=== PATIENT | female | born 1980 | race Caucasian/White ===

== ENCOUNTER 2016-05-23 18:20 | Emergency (ER) | payer SELFPAY ==
[2016-05-23] MEDS ORDERED: HYDROcodone/Acetaminophen 10/325 mg Tablet ONE (19:00)
[2016-05-23] MEDS ORDERED: Ciprofloxacin 500 MG TAB ONE (19:01)
[2016-05-23] MEDS ORDERED: Naproxen 500 MG TAB ONE (19:01)
--- NOTE | 2016-05-23 19:16 | ERRECORD ---
[facility] EMERGENCY RECORD HPI TOOTHACHE (19:04 LLDO) CHIEF COMPLAINT: Patient presents for evaluation of toothache, Patient presents for evaluation of jaw swelling, Patient presents for evaluation of see triage note. 5 days. worsening. HISTORIAN: History provided by patient, History provided by patient's spouse. LOCATION: Symptoms are generalized. TEETH: lower left 2nd molar (#18), lower left 3rd molar (#17), Broken Caries noted in Loose Pain to. QUALITY: Pain is dull in nature, described as aching. SEVERITY: Maximum severity of symptoms severe, Currently symptoms are severe. TIME COURSE: Sudden onset of symptoms, Symptoms are worsening, are constant. ASSOCIATED WITH: Associated with facial pain, Associated with facial swelling. EXACERBATED BY: Patient's condition exacerbated by chewing, Patient's condition exacerbated by cold fluids, Patient's condition exacerbated by hot fluids, Patient's condition exacerbated by movement. RELIEVED BY: Patient's condition relieved by nothing. ROS CONSTITUTIONAL: Historian reports fatigue, reports malaise. (19:06 LLDO) EYES: Negative eye review of systems, Historian denies eye pain, denies eye redness, denies eye discharge. (19:09 LLDO) ENT: SEVERE DENTAL PAIN. (19:06 LLDO) MUSCULOSKELETAL: Negative musculoskeletal review of systems, Historian denies arthralgias, denies back pain, denies injury, denies myalgias, denies neck pain. (19:09 LLDO) SKIN: Negative skin review of systems, Historian denies cellulitis, denies rash, denies skin changes, denies skin lesions. (19:09 LLDO) NEUROLOGIC: Negative neurologic review of systems, Historian denies confusion, denies dizziness, denies focal weakness, denies mental status changes. (19:09 LLDO) HEMO/LYMPHATIC: Normal hematologic/lymphatic system review, Historian denies abnormal blood clotting, denies gum bleeding, denies petechiae. (19:09 LLDO) ALLERGIC/IMMUNOLOGIC: Normal allergy/immunologic system review, Historian denies eczema, denies environmental allergies, denies food allergies. (19:09 LLDO) PSYCHIATRIC: Negative psychiatric review of systems, Historian denies alcohol abuse, denies anxiety, denies depression, denies drug abuse, denies hallucinations. (19:09 LLDO) NOTES: All systems reviewed, negative except as described above. (19:06 LLDO) PAST MEDICAL HISTORY MEDICAL HISTORY: No past medical history, Flu vaccine not &a-1R&a+25V*p+0X*e6288O*c202B*c15G*c2P*p-0X&a-25V&a+1R Name: Mallory Aguilar : 1980 F35 MedRec: [id number] AcctNum: [id number] Prepared: MonMay 23, 2016 19:18 by Interface Page 1 of 4 pMD [facility] EMERGENCY RECORD up to date, Tetanus immunization up to date, No past medical history.gall bladder disease. Past medical history is not significant./VRFD 17. (18:58 AWAT) FEMALE SURGICAL HISTORY: Surgical history of cholecystectomy, laparoscopic, Surgical history of tubal ligation, Date of surgery 2004,. Surgical history of cholecystectomy, Surgical history of tubal ligation. VEROFOED 17. (18:58 AWAT) PSYCHIATRIC HISTORY: Notes: DENIES. (18:58 AWAT) SOCIAL HISTORY: Patient denies alcohol use, Patient denies drug use, Patient currently uses tobacco, smokes cigarettes, daily, Patient smokes 1 pack per day, Social History includes VERIFIED --16, Patient denies alcohol use, Patient currently uses tobacco, smokes cigarettes, daily, Patient has smoked for 10 years, Patient smokes 1 pack per day, Patient denies alcohol use, Patient denies drug use, Patient currently uses tobacco, smokes cigarettes, daily. Patient currently uses tobacco, smokes cigarettes. (18:58 AWAT) FAMILY HISTORY: Unknown family histroy. (18:58 AWAT) NOTES: Nursing records reviewed, Agree with nursing records, Medication list reviewed. (19:09 LLDO) KNOWN ALLERGIES PCN (Unconfirmed): Reaction: Hives, Severity: Moderate, Source: Parent penicillin G sodium Penicillins CURRENT MEDICATIONS (18:50 AGAN) None VITAL SIGNS (18:44 AGAN) VITAL SIGNS: BP: 115/69, Pulse: 93, Resp: 20, Temp: 98.4 (Tympanic), Pain: 10 (Constant), O2 sat: 96% on Room Air, Time: 05/23/2016 18:44. PHYSICAL EXAM CONSTITUTIONAL: Vital signs reviewed, Patient afebrile, Pulse normal, Blood pressure normal, Respiratory rate normal, Patient appears, uncomfortable, Patient appears in pain, in moderate pain distress, INTERMITTENTLY SEVERE, Patient alert and oriented to person, place and time. (19:08 LLDO) HEAD: Head exam normal, Head exam included findings of head atraumatic, normocephalic. (19:09 LLDO) EYES: Eye exam normal, Eye exam included findings of eyelids normal to inspection, Pupils equally round and reactive to light, Extraocular muscles intact. (19:09 LLDO) ENT: Ear exam normal, Nose exam normal, Pharynx exam normal, Uvula exam normal, Tonsil exam normal, Teeth with, dental caries, fractures, abscess, &a-1R&a+25V*p+0X*s6605Q*c202B*c15G*c2P*p-0X&a-25V&a+1R Name: Mallory Aguilar : 1980 F35 MedRec: [id number] AcctNum: [id number] Prepared: MonMay 23, 2016 19:18 by Interface Page 2 of 4 pMD [facility] EMERGENCY RECORD Sinus exam included findings of frontal sinuses normal, maxillary sinuses normal. (19:08 LLDO) NECK: Neck exam included findings of normal range of motion, Trachea midline, Thyroid normal, no meningeal signs, Cervical adenopathy, diffuse, multiple nodes, tender, swollen. (19:08 LLDO) BACK: Back exam normal, Back exam included findings of normal inspection, range of motion normal. (19:09 LLDO) UPPER EXTREMITY: Upper extremity exam normal, Upper extremity exam included findings of inspection normal, Range of motion normal. (19:09 LLDO) LOWER EXTREMITY: Lower extremity exam normal, Lower extremity exam included findings of inspection normal, Range of motion normal. (19:09 LLDO) NEURO: Neuro exam normal, Neuro exam findings include patient oriented to person, place and time, Speech normal, [place] coma scale 15. (19:09 LLDO) SKIN: Skin exam normal, Skin exam included findings of skin warm, dry, and normal in color, no rash. (19:09 LLDO) PSYCHIATRIC: Psychiatric exam normal, Psychiatric exam included findings of patient oriented to person place and time, Normal affect. (19:09 LLDO) MEDICATION ADMINISTRATION SUMMARY Drug Name: [place], Dose Ordered: 10-325 mg, Route: Oral, Status: Given, Time: 19:00 05/23/2016, Drug Name: Cipro tablet, Dose Ordered: 500 mg, Route: Oral, Status: Given, Time: 19:00 05/23/2016, Drug Name: Naprosyn, Dose Ordered: 500 mg, Route: Oral, Status: Given, Time: 19:00 05/23/2016, Detailed record available in Medication Service section. PROBLEM LIST No recorded problems DIAGNOSIS (18:58 LLDO) FINAL: PRIMARY: Dental abscess. PRESCRIPTION (18:59 LLDO) Cipro tablet: TABLET : 500 mg : ORAL : Quantity: 1 Unit: tab(s) Route: ORAL Schedule: 2 times a day Dispense: 20 May substitute. Refills: No Refills . NOTES: No Refills. Tylenol-Codeine #3: TABLET : 300 mg-30 mg : ORAL : Quantity: 1-2 Unit: tab(s) Route: ORAL Schedule: every 4 hours prn Dispense: 30 May substitute. Refills: No Refills . NOTES: ^s=No Refills No Refills. &a-1R&a+25V*p+0X*s1926S*c202B*c15G*c2P*p-0X&a-25V&a+1R Name: Mallory Aguilar : 1980 F35 MedRec: [id number] AcctNum: [id number] Prepared: MonMay 23, 2016 19:18 by Interface Page 3 of 4 pMD [facility] EMERGENCY RECORD DISPOSITION PATIENT: Disposition Type: Discharge, Disposition: *Discharge Home. (18:58 LLDO) Disposition Transport: Ambulatory, Condition: Good, Patient left the department. (19:14 MILLA) Vela: MILLA=ELISA Anderson, Jony PANG=ELISA Galvin, Figueroa LLDO=MD Guerrero Lloyd &a-1R&a+25V*p+0X*o1448N*c202B*c15G*c2P*p-0X&a-25V&a+1R Name: Mallory Aguilar : 1980 F35 MedRec: [id number] AcctNum: [id number] Prepared: MonMay 23, 2016 19:18 by Interface Page 4 of 4 pMD MTDD
--- NOTE | 2016-05-23 19:23 | PICIS ---
[facility] EMERGENCY RECORD TRIAGE (MonMay 23, 2016 18:49 AGAN) TRIAGE NOTES: I have abscesses before, but this one worse. Tootache with pains to left side of face. started 5 days ago. (MonMay 23, 2016 18:49 AGAN) PATIENT: NAME: Mallory Aguilar, AGE: 35, GENDER: female, : Mon1980, TIME OF GREET: MonMay 23, 2016 18:21, PREFERRED LANGUAGE: Romansh, ETHNICITY: Not or , ECODE BILLING MAP: [facility], SSN: [id number], Zip Code: [address], KG WEIGHT: 90.72, PHONE: , , , PERSON ID: [id number], PCP: NONE. (MonMay 23, 2016 18:49 AGAN) COMPLAINT: ABCESSED TOOTH. (MonMay 23, 2016 18:49 AGAN) ADMISSION: URGENCY: 4 Non Urgent, ADMISSION SOURCE: Home, TRANSPORT: CAR, BED: ED -1. (MonMay 23, 2016 18:49 AGAN) ASSESSMENT: Assessment: Ambulatory appearing generally ill c/o pain tooth and left side of face, Symptoms began 5 days ago. (18:58 AWAT) PAIN: Location tooth and left side of face, Pain is constant. (18:58 AWAT) SIRS SCORING: Heart Rate 55-109 (0), Temp range 96.8-101.1 (0), respiratory rate 12-24 (0), Mental Status altered: no (0). (18:58 AWAT) PROVIDERS: TRIAGE NURSE: Jony Anderson RN. (MonMay 23, 2016 18:49 AGAN) VITAL SIGNS: BP 115/69, Pulse 93, Resp 20, Temp 98.4, (Tympanic), Pain 10, (Constant), O2 Sat 96%, on Room Air, Time 05/23/2016 18:44. (18:44 AGAN) PREVIOUS VISIT ALLERGIES: Penicillins. (MonMay 23, 2016 18:49 AGAN) Penicillins. (18:58 AWAT) KNOWN ALLERGIES PCN (Unconfirmed): Reaction: Hives, Severity: Moderate, Source: Parent penicillin G sodium Penicillins CURRENT MEDICATIONS (18:50 AGAN) None VITAL SIGNS (18:44 AGAN) VITAL SIGNS: BP: 115/69, Pulse: 93, Resp: 20, Temp: 98.4 (Tympanic), Pain: 10 (Constant), O2 sat: 96% on Room Air, Time: 05/23/2016 18:44. MEDICATION ADMINISTRATION SUMMARY Drug Name: Kelly, Dose Ordered: 10-325 mg, Route: Oral, Status: Given, Time: 19:00 05/23/2016, Drug Name: Cipro tablet, Dose Ordered: 500 mg, Route: Oral, Status: &a-1R&a+25V*p+0X*z3175W*c202B*c15G*c2P*p-0X&a-25V&a+1R Name: Mallory Aguilar : 1980 F35 MedRec: [id number] AcctNum: [id number] Prepared: MonMay 23, 2016 19:17 by Interface Page 1 of 6 D [facility] EMERGENCY RECORD Given, Time: 19:00 05/23/2016, Drug Name: Naprosyn, Dose Ordered: 500 mg, Route: Oral, Status: Given, Time: 19:00 05/23/2016, Detailed record available in Medication Service section. MEDICATION SERVICE (19:00 LLDO) Cipro tablet: Order: Cipro tablet (ciprofloxacin HCl) - Dose: 500 mg : Oral Schedule: Now Ordered by: Manoj Guerrero MD Entered by: Manoj Guerrero MD MonMay 23, 2016 18:55 Documented as given by: Jony Anderson RN MonMay 23, 2016 19:00 Patient, Medication, Dose, Route and Time verified prior to administration. Amount given: 500 mg, Site: Medication administered P.O., Correct patient, time, route, dose and medication confirmed prior to administration, Patient advised of actions and side-effects prior to administration, Allergies confirmed and medications reviewed prior to administration, Patient tolerated procedure well, Patient in position of comfort, Side rails up, Cart in lowest position, Family at bedside. Naprosyn: Order: Naprosyn (naproxen) - Dose: 500 mg : Oral Schedule: Now Ordered by: Manoj Guerrero MD Entered by: Manoj Geurrero MD MonMay 23, 2016 18:55 , Acknowledged by: Figueroa Galvin RN MonMay 23, 2016 18:58 Documented as given by: Jony Anderson RN MonMay 23, 2016 19:00 Patient, Medication, Dose, Route and Time verified prior to administration. Amount given: 500 mg, Site: Medication administered P.O., Correct patient, time, route, dose and medication confirmed prior to administration, Patient advised of actions and side-effects prior to administration, Allergies confirmed and medications reviewed prior to administration, Patient tolerated procedure well, Patient in position of comfort, Side rails up, Cart in lowest position, Family at bedside. Kelly: Order: Kelly (hydrocodone bitartrate/acetaminophen) - Dose: 10-325 mg : Oral Schedule: Now Ordered by: Manoj Guerrero MD Entered by: Manoj Guerrero MD MonMay 23, 2016 18:55 , Acknowledged by: Figueroa Galvin RN MonMay 23, 2016 18:58 Documented as given by: Jony Anderson RN MonMay 23, 2016 19:00 Patient, Medication, Dose, Route and Time verified prior to administration. Amount given: 1 tab, Site: Medication administered P.O., Correct patient, time, route, dose and medication confirmed prior to administration, Patient advised of actions and side-effects prior to administration, Allergies confirmed and medications reviewed prior to &a-1R&a+25V*p+0X*l6518F*c202B*c15G*c2P*p-0X&a-25V&a+1R Name: Mallory Aguilar : 1980 F35 MedRec: [id number] AcctNum: [id number] Prepared: MonMay 23, 2016 19:17 by Interface Page 2 of 6 pMD [facility] EMERGENCY RECORD administration, Patient tolerated procedure well, Patient in position of comfort, Side rails up, Cart in lowest position, Family at bedside. HPI TOOTHACHE (19:04 LLDO) CHIEF COMPLAINT: Patient presents for evaluation of toothache, Patient presents for evaluation of jaw swelling, Patient presents for evaluation of see triage note. 5 days. worsening. HISTORIAN: History provided by patient, History provided by patient's spouse. LOCATION: Symptoms are generalized. TEETH: lower left 2nd molar (#18), lower left 3rd molar (#17), Broken Caries noted in Loose Pain to. QUALITY: Pain is dull in nature, described as aching. SEVERITY: Maximum severity of symptoms severe, Currently symptoms are severe. TIME COURSE: Sudden onset of symptoms, Symptoms are worsening, are constant. ASSOCIATED WITH: Associated with facial pain, Associated with facial swelling. EXACERBATED BY: Patient's condition exacerbated by chewing, Patient's condition exacerbated by cold fluids, Patient's condition exacerbated by hot fluids, Patient's condition exacerbated by movement. RELIEVED BY: Patient's condition relieved by nothing. ROS CONSTITUTIONAL: Historian reports fatigue, reports malaise. (19:06 LLDO) EYES: Negative eye review of systems, Historian denies eye pain, denies eye redness, denies eye discharge. (19:09 LLDO) ENT: SEVERE DENTAL PAIN. (19:06 LLDO) MUSCULOSKELETAL: Negative musculoskeletal review of systems, Historian denies arthralgias, denies back pain, denies injury, denies myalgias, denies neck pain. (19:09 LLDO) SKIN: Negative skin review of systems, Historian denies cellulitis, denies rash, denies skin changes, denies skin lesions. (19:09 LLDO) NEUROLOGIC: Negative neurologic review of systems, Historian denies confusion, denies dizziness, denies focal weakness, denies mental status changes. (19:09 LLDO) HEMO/LYMPHATIC: Normal hematologic/lymphatic system review, Historian denies abnormal blood clotting, denies gum bleeding, denies petechiae. (19:09 LLDO) ALLERGIC/IMMUNOLOGIC: Normal allergy/immunologic system review, Historian denies eczema, denies environmental allergies, denies food allergies. (19:09 LLDO) PSYCHIATRIC: Negative psychiatric review of systems, Historian denies alcohol abuse, denies anxiety, denies depression, denies drug abuse, denies hallucinations. (19:09 LLDO) NOTES: All systems reviewed, negative except as described above. &a-1R&a+25V*p+0X*z4542E*c202B*c15G*c2P*p-0X&a-25V&a+1R Name: Mallory Aguilar : 1980 F35 MedRec: [id number] AcctNum: [id number] Prepared: Mon May 23, 2016 19:17 by Interface Page 3 of 6 pMD [facility] EMERGENCY RECORD (19:06 LLDO) PAST MEDICAL HISTORY MEDICAL HISTORY: No past medical history, Flu vaccine not up to date, Tetanus immunization up to date, No past medical history.gall bladder disease. Past medical history is not significant./VRFD 05.23.16. (18:58 AWAT) FEMALE SURGICAL HISTORY: Surgical history of cholecystectomy, laparoscopic, Surgical history of tubal ligation, Date of surgery 2004,. Surgical history of cholecystectomy, Surgical history of tubal ligation. VEROFOED 05.23.16. (18:58 AWAT) PSYCHIATRIC HISTORY: Notes: DENIES. (18:58 AWAT) SOCIAL HISTORY: Patient denies alcohol use, Patient denies drug use, Patient currently uses tobacco, smokes cigarettes, daily, Patient smokes 1 pack per day, Social History includes VERIFIED 03-06-16, Patient denies alcohol use, Patient currently uses tobacco, smokes cigarettes, daily, Patient has smoked for 10 years, Patient smokes 1 pack per day, Patient denies alcohol use, Patient denies drug use, Patient currently uses tobacco, smokes cigarettes, daily. Patient currently uses tobacco, smokes cigarettes. (18:58 AWAT) FAMILY HISTORY: Unknown family histroy. (18:58 AWAT) NOTES: Nursing records reviewed, Agree with nursing records, Medication list reviewed. (19:09 LLDO) PHYSICAL EXAM CONSTITUTIONAL: Vital signs reviewed, Patient afebrile, Pulse normal, Blood pressure normal, Respiratory rate normal, Patient appears, uncomfortable, Patient appears in pain, in moderate pain distress, INTERMITTENTLY SEVERE, Patient alert and oriented to person, place and time. (19:08 LLDO) HEAD: Head exam normal, Head exam included findings of head atraumatic, normocephalic. (19:09 LLDO) EYES: Eye exam normal, Eye exam included findings of eyelids normal to inspection, Pupils equally round and reactive to light, Extraocular muscles intact. (19:09 LLDO) ENT: Ear exam normal, Nose exam normal, Pharynx exam normal, Uvula exam normal, Tonsil exam normal, Teeth with, dental caries, fractures, abscess, Sinus exam included findings of frontal sinuses normal, maxillary sinuses normal. (19:08 LLDO) NECK: Neck exam included findings of normal range of motion, Trachea midline, Thyroid normal, no meningeal signs, Cervical adenopathy, diffuse, multiple nodes, tender, swollen. (19:08 LLDO) BACK: Back exam normal, Back exam included findings of normal inspection, range of motion normal. (19:09 LLDO) UPPER EXTREMITY: Upper extremity exam normal, Upper extremity exam included findings of inspection normal, Range of motion normal. &a-1R&a+25V*p+0X*m6617B*c202B*c15G*c2P*p-0X&a-25V&a+1R Name: Mallory Aguilar : 1980 F35 MedRec: [id number] AcctNum: [id number] Prepared: MonMay 23, 2016 19:17 by Interface Page 4 of 6 pMD [facility] EMERGENCY RECORD (19:09 LLDO) LOWER EXTREMITY: Lower extremity exam normal, Lower extremity exam included findings of inspection normal, Range of motion normal. (19:09 LLDO) NEURO: Neuro exam normal, Neuro exam findings include patient oriented to person, place and time, Speech normal, [place] coma scale 15. (19:09 LLDO) SKIN: Skin exam normal, Skin exam included findings of skin warm, dry, and normal in color, no rash. (19:09 LLDO) PSYCHIATRIC: Psychiatric exam normal, Psychiatric exam included findings of patient oriented to person place and time, Normal affect. (19:09 LLDO) EVENTS TRANSFER: Triage to Emergency Main ED -H01. (MonMay 23, 2016 18:49 AGAN) Removed from Emergency Main ED -H01. (19:14 AGAN) PROBLEM LIST No recorded problems DIAGNOSIS (18:58 LLDO) FINAL: PRIMARY: Dental abscess. DISPOSITION PATIENT: Disposition Type: Discharge, Disposition: *Discharge Home. (18:58 LLDO) Disposition Transport: Ambulatory, Condition: Good, Patient left the department. (19:14 AGAN) INSTRUCTION (19:01 LLDO) DISCHARGE: DENTAL ABSCESS W/ FACIAL CELLULITIS. FOLLOWUP: Follow up with Primary Care Physician as soon as possible. SPECIAL: Follow-up with your dentist. PRESCRIPTION (18:59 LLDO) Cipro tablet: TABLET : 500 mg : ORAL : Quantity: 1 Unit: tab(s) Route: ORAL Schedule: 2 times a day Dispense: 20 May substitute. Refills: No Refills . NOTES: No Refills. Tylenol-Codeine #3: TABLET : 300 mg-30 mg : ORAL : Quantity: 1-2 Unit: tab(s) Route: ORAL Schedule: every 4 hours prn Dispense: 30 May substitute. Refills: No Refills . NOTES: ^s=No Refills No Refills. ADMIN (19:09 LLDO) DIGITAL SIGNATURE: MD Cesar, Manoj. &a-1R&a+25V*p+0X*x7012M*c202B*c15G*c2P*p-0X&a-25V&a+1R Name: Mallory Aguilar : 1980 [facility] MedRec: [id number] AcctNum: [id number] Prepared: MonMay 23, 2016 19:17 by Interface Page 5 of 6 pMD [facility] EMERGENCY RECORD Vela: MILLA=ELISA Anderson, Jony PANG=ELISA Galvin, Figueroa VILLANUEVA=MD Guerrero Lloyd &a-1R&a+25V*p+0X*r6242C*c202B*c15G*c2P*p-0X&a-25V&a+1R Name: Mallory Aguilar : 1980 [facility] MedRec: [id number] AcctNum: [id number] Prepared: MonMay 23, 2016 19:17 by Interface Page 6 of 6 pMD [facility] MEDICATION RECONCILIATION You were seen in the Emergency Department on: MonMay 23, 2016 KNOWN ALLERGIES PCN (Unconfirmed): Reaction: Hives, Severity: Moderate, Source: Parent penicillin G sodium Penicillins MEDICATIONS GIVEN WHILE IN THE EMERGENCY DEPARTMENT Naprosyn (naproxen) - Dose: 500 milligram(s) : Oral Kelly (hydrocodone bitartrate/acetaminophen) - Dose: 10-325 milligram(s) : Oral Cipro tablet (ciprofloxacin HCl) - Dose: 500 milligram(s) : Oral HOME MEDICATIONS None Notes from the emergency department Reviewed with family Reviewed with patient PRESCRIPTIONS (2) Printed (2) Cipro tablet : TABLET : 500 mg : ORAL Quantity: 1, Unit: tab(s), Route: ORAL, Schedule: 2 times a day, Dispense: 20 &a-1R&a+25V*p+0X*e6825D*c202B*c15G*c2P*p-0X&a-25V&a+1R Name: Mallory Aguilar : 1980 F35 MedRec: [id number] AcctNum: [id number] Prepared: MonMay 23, 2016 19:17 by Interface pMD MTDD
== END 2016-05-23 19:05 | disposition home or self-care (01) ==
LOC: MADERS 18:20
DX: K04.7 Periapical abscess without sinus (principal); F17.210 Nicotine dependence, cigarettes, uncomplicated; Z98.51 Tubal ligation status
CPT/HCPCS: 99282

== ENCOUNTER 2017-09-18 10:25 | Emergency (ER) | payer SELFPAY ==
[~2017-09-18 10:25] MED LIST: Donnatal Elixir 16.2 MG/5 ML UDCUP ONE; Sodium Chloride 0.9% 1,000 ML BAG ONE
[2017-09-18] MEDS ORDERED: Morphine 10 MG/ML VIAL ONE ×2 (11:10→14:09)
[2017-09-18] MEDS ORDERED: Ondansetron ODT 4 MG TAB ONE (11:10)
[2017-09-18] MEDS ORDERED: Ketorolac Tromethamine 30 MG/ML VIAL ONE (11:10)
[2017-09-18 11:19] LABS: #Basophils 0.1 thou/uL (0.0-0.2); #Eosinphils 0.1 thou/uL (0.0-0.7); #Lymphocytes 2.4 thou/uL (1.20-3.40); #Monocytes 0.6 thou/uL (0.11-0.59); #Neutrophils 7.6 thou/uL (1.40-6.50); %Basophils 0.8 % (0.0-1.0); %Eosinophils 0.9 % (0.0-10.0); %Lymphocytes 22.5 % (21.0-51.0); %Monocytes 5.2 % (0.0-10.0); %Neutrophils 70.6 % (42.0-75.0); Hemoglobin 14.9 g/dL (12.0-16.0); Mean Corpuscular Hemoglobin 32.2 pg (27.0-31.0); Mean Platelet Volume 10.2 fL (7.4-10.4); Platelet Count 198 thou/uL (130-400); RBC Distribution Width 10.8 % (11.5-14.5); Red Blood Cell (RBC) Count 4.61 mill/uL (4.20-5.40); White Blood Cell (WBC) Count 10.7 thou/uL (4.8-10.8)
[2017-09-18 11:29] LABS: ALT (SGPT) 18 U/L (8-55); AST (SGOT) 13 U/L (5-34); Albumin 4.4 g/dL (3.5-5.0); Alkaline Phosphatase 60 U/L (40-150); Anion Gap 16 mmol/L (10-20); BUN (Urea Nitrogen) 7 mg/dL (7.0-18.7); Bilirubin, Total 0.9 mg/dL (0.2-1.2); Calc. Creatinine Clearance 0 mL/min (70-130); Calcium 9.8 mg/dL (7.8-10.44); Carbon Dioxide 18 mmol/L (22-29); Chloride 107 mmol/L (98-107); Estimated GFR-MDRD 90; Globulin 2.5 g/dL (2.4-3.5); Glucose 99 mg/dL (70-105); Lipase 10 U/L (8-78); Potassium 4.1 mmol/L (3.5-5.1); Protein, Total 6.9 g/dL (6.0-8.3); Sodium 137 mmol/L (136-145)
[2017-09-18 11:53] LABS: Bilirubin Negative (Negative); Blood, Urine Negative (Negative); Clarity Clear (Clear); Glucose, Urine (Dipstick) Negative (Negative); Leukocyte Negative (Negative); Nitrite Negative (Negative); Protein, Urine (Dipstick) Negative (Neg-Trace); Specific Gravity, Urine Less/Equal 1.005 (1.005-1.030); Urobilinogen 0.2 mg/dL (0.2-1.0)
[2017-09-18] MEDS ORDERED: Iopamidol 370 76% 100 ML VIAL ONE (11:56)
[2017-09-18 12:01] LABS: Bacteria/HPF Rare-Few HPF (None Seen); RBC/HPF None Seen HPF (0-3); WBC/HPF None Seen HPF (0-3)
--- NOTE | 2017-09-18 14:54 | CT ---
ABDOMEN CT WITH CONTRAST PELVIC CT WITH CONTRAST: COMPARISON: 08/30/14. HISTORY: Right upper quadrant pain since 5:00 a.m. COMPARISON: None. TECHNIQUE: An abdomen and pelvic CT are performed with IV and enteric contrast. Coronal reformatted images are submitted for interpretation. FINDINGS: ABDOMEN CT: Lung bases are clear. Heart size is normal. No pericardial effusion. The descending thoracic aorta and abdominal aorta have a normal caliber. No periaortic fat stranding. Gallbladder is surgically absent. Portal vein is patent. Liver, spleen, pancreas, and adrenal gland s have appropriate enhancement. No gastrohepatic, retrocrural, or periportal lymphadenopathy. No mesenteric mass, lymphadenopathy, f ree air, or free fluid. Gastric mucosa, duodenum, and multiple normal-caliber small bowel loops are noted. Ileocecal junctio n is normal. Normal-caliber appendix. Scattered fecal material in a nondistended, nondilated colon. Occasional diverticulum. No diverticulitis. PELVIC CT: The urinary bladder is unremarkable. No pelvic mass, lymphadenopathy, free air, or free fluid. Uter us and adnexal structures have a normal appearance. No lytic or blastic lesions in the osseous structures. IMPRESSION: 1. No acute abnormality in the abdomen or pelvis. 2. Normal-caliber appendix. 3. Diverticulosis, without evidence of diverticulitis. 4. Surgically absent gallbladder. POS: [facility]
[2017-09-18] MEDS ORDERED: Mag-Al Plus 1200 MG/1200 MG/120 MG/30 ML UDCUP ONE (15:07)
[2017-09-18] MEDS ORDERED: Lidocaine Viscous Sol 2% 15 ml UD Cup ONE (15:07)
[2017-09-18] MEDS ORDERED: Donnatal Elixir 16.2 MG/5 ML UDCUP ONE (15:07)
== END 2017-09-18 15:49 | disposition home or self-care (01) ==
LOC: MADERS 10:25
DX: R10.11 Right upper quadrant pain (principal); R10.13 Epigastric pain; R14.0 Abdominal distension (gaseous); F17.210 Nicotine dependence, cigarettes, uncomplicated
CPT/HCPCS: 74177; 80053; 81001; 82150; 83690; 85025; 87086; 96361; 96374; 96375; 96376; J1885; J2270; J7050; Q0162

== ENCOUNTER 2020-02-04 16:49 | Emergency (ER) | payer SELFPAY ==
[2020-02-04] MEDS ORDERED: Triamcinolone 40 MG/ML VIAL ONE (17:28)
[2020-02-04] MEDS ORDERED: Lidocaine 1% 20 ML MDV ONE (17:28)
[2020-02-04] MEDS ORDERED: predniSONE 20 MG TAB ONE (17:49)
[2020-02-04] MEDS ORDERED: Acetaminophen 500 MG TAB ONE (17:49)
== END 2020-02-04 18:00 | disposition home or self-care (01) ==
LOC: MADERS 16:49
DX: M25.562 Pain in left knee (principal); F17.210 Nicotine dependence, cigarettes, uncomplicated
CPT/HCPCS: 96372; 99283; J3301; J7512

== ENCOUNTER 2021-01-01 09:32 | Emergency (ER) | payer MEDICAID, SELFPAY ==
[2021-01-01] MEDS ORDERED: Ondansetron PF 4 MG/2 ML Vial ONE (10:22)
[2021-01-01] MEDS ORDERED: Pantoprazole 40 MG VIAL ONE (10:22)
[2021-01-01] MEDS ORDERED: Sodium Chloride 0.9% 1,000 ML ONE (10:22)
[2021-01-01 10:25] LABS: BHCG - Serum Negative (NEGATIVE); Pregs Control Background? CLEAR/WHITE (CLR/WHITE); Pregs Control Bar Appear? YES (CONTROL BAR)
[2021-01-01 10:27] LABS: #Basophils 0.1 thou/uL (0.0-0.2); #Eosinphils 0.1 thou/uL (0.0-0.7); #Lymphocytes 2.2 thou/uL (1.20-3.40); #Monocytes 0.5 thou/uL (0.11-0.59); #Neutrophils 5.6 thou/uL (1.40-6.50); %Basophils 1.2 % (0.0-1.0); %Eosinophils 1.6 % (0.0-10.0); %Lymphocytes 25.6 % (21.0-51.0); %Neutrophils 65.6 % (42.0-75.0); Hemoglobin 17.3 g/dL (12.0-16.0); Mean Corpuscular HGB CONC 33.7 g/dL (32.0-36.0); Mean Corpuscular Hemoglobin 32.7 pg (27.0-31.0); Mean Platelet Volume 10.6 fL (7.4-10.4); Platelet Count 229 thou/uL (130-400); RBC Distribution Width 11.2 % (11.5-14.5); Red Blood Cell (RBC) Count 5.29 mill/uL (4.20-5.40); White Blood Cell (WBC) Count 8.5 thou/uL (4.8-10.8)
[2021-01-01 10:37] LABS: ALT (SGPT) 22 U/L (8-55); AST (SGOT) 15 U/L (5-34); Albumin 4.5 g/dL (3.5-5.0); Alkaline Phosphatase 77 U/L (40-110); Anion Gap 17 mmol/L (10-20); BUN (Urea Nitrogen) 7 mg/dL (7.0-18.7); Bilirubin, Total 0.6 mg/dL (0.2-1.2); CK (CPK) 12 U/L (29-168); CRP (Inflammatory) 0.61 mg/dL (= or < 0.5); Calc. Creatinine Clearance 0 mL/min (70-130); Calcium 10.3 mg/dL (7.8-10.44); Carbon Dioxide 21 mmol/L (22-29); Chloride 105 mmol/L (98-107); Globulin 3.5 g/dL (2.4-3.5); Glucose 96 mg/dL (70-105); Potassium 4.2 mmol/L (3.5-5.1); Sodium 139 mmol/L (136-145)
[2021-01-01 10:39] LABS: Bilirubin Negative (Negative); Blood, Urine Moderate (Negative); Glucose, Urine (Dipstick) Negative (Negative); Ketone, Urine Negative (Negative); Leukocyte Negative (Negative); Nitrite Negative (Negative); Protein, Urine (Dipstick) Negative (Neg-Trace); Urobilinogen 0.2 mg/dL (Less than 2)
[2021-01-01 10:41] LABS: Clarity Hazy (Clear)
[2021-01-01 10:48] LABS: Bacteria/HPF Rare-Few HPF (None Seen); Mucous/LPF 2+ LPF (<2+); WBC/HPF 0-3 HPF (0-3)
[2021-01-01] MEDS ORDERED: Iopamidol 370 76% 100 ML VIAL ONE (11:12)
== END 2021-01-01 12:17 | disposition home or self-care (01) ==
LOC: MADERS 09:32
DX: K27.9 Peptic ulcer, site unspecified, unspecified as acute or chronic, without hemorrhage or perforation (principal); F17.210 Nicotine dependence, cigarettes, uncomplicated
CPT/HCPCS: 74177; 80053; 81003; 81015; 82150; 82550; 83690; 84484; 84703; 85025; 86140; 96374; 96375; C9113; J2405; J7050; Q9967

== ENCOUNTER 2022-06-12 20:15 | Emergency (ER) | payer SELFPAY ==
[~2022-06-12 20:15] MED LIST changes: -Donnatal Elixir 16.2 MG/5 ML UDCUP ONE; +Iopamidol 370 76% 100 ML VIAL ONE; -Sodium Chloride 0.9% 1,000 ML BAG ONE
[2022-06-12] MEDS ORDERED: Clindamycin/D5W 900 mg/50 ml Premix Bag ONE (20:48)
[2022-06-12] MEDS ORDERED: Dexamethasone 10 MG/ML VIAL ONE (20:48)
[2022-06-12] MEDS ORDERED: Morphine 4 MG/ML VIAL ONE (20:48)
[2022-06-12] MEDS ORDERED: Ondansetron PF 4 MG/2 ML Vial ONE (20:48)
[2022-06-12] MEDS ORDERED: Sodium Chloride 0.9% 1,000 ML ONE (20:48)
[2022-06-12 20:53] LABS: #Basophils 0.1 thou/uL (0.0-0.2); #Eosinphils 0.1 thou/uL (0.0-0.7); #Lymphocytes 2.4 thou/uL (1.20-3.40); #Monocytes 0.7 thou/uL (0.11-0.59); #Neutrophils 4.7 thou/uL (1.40-6.50); %Basophils 1.5 % (0.0-1.0); %Eosinophils 1.9 % (0.0-10.0); %Lymphocytes 29.9 % (21.0-51.0); %Monocytes 8.6 % (0.0-10.0); %Neutrophils 58.2 % (42.0-75.0); Hemoglobin 14.9 g/dL (12.0-16.0); Mean Corpuscular HGB CONC 34.3 g/dL (32.0-36.0); Mean Corpuscular Hemoglobin 31.4 pg (27.0-31.0); Mean Corpuscular Volume 91.7 fl (78.0-98.0); Mean Platelet Volume 9.7 fL (7.4-10.4); Platelet Count 232 10x3/uL (130-400); RBC Distribution Width 11.4 % (11.5-14.5); Red Blood Cell (RBC) Count 4.75 mill/uL (4.20-5.40)
[2022-06-12 21:08] LABS: BHCG - Serum Negative (NEGATIVE); Pregs Control Background? CLEAR/WHITE (CLR/WHITE); Pregs Control Bar Appear? YES (CONTROL BAR)
[2022-06-12 21:15] LABS: ALT (SGPT) 15 U/L (8-55); AST (SGOT) 12 U/L (5-34); Alkaline Phosphatase 73 U/L (40-110); Anion Gap 13 mmol/L (10-20); BUN (Urea Nitrogen) 6 mg/dL (7.0-18.7); Bilirubin, Total 0.5 mg/dL (0.2-1.2); Calc. Creatinine Clearance 0 mL/min (70-130); Calcium 9.5 mg/dL (7.8-10.44); Carbon Dioxide 25 mmol/L (22-29); Chloride 103 mmol/L (98-107); Estimated GFR 92; Globulin 3.1 g/dL (2.4-3.5); Glucose 102 mg/dL (70-105); Potassium 3.8 mmol/L (3.5-5.1); Protein, Total 7.1 g/dL (6.0-8.3); Sodium 137 mmol/L (136-145)
== END 2022-06-12 22:10 | disposition home or self-care (01) ==
LOC: MADERS 20:15
DX: K04.7 Periapical abscess without sinus (principal); K02.9 Dental caries, unspecified; F17.210 Nicotine dependence, cigarettes, uncomplicated
CPT/HCPCS: 70491; 80053; 84703; 85025; 96365; 96375; J1100; J2270; J2405; J3490; J7050; Q9967

== ENCOUNTER 2023-05-26 03:32 | Emergency (ER) | payer BC, SELFPAY ==
[2023-05-26] MEDS ORDERED: Acetaminophen 500 MG TAB ONE (03:51)
[2023-05-26] MEDS ORDERED: Clindamycin 150 MG CAP ONE (03:51)
== END 2023-05-26 04:05 | disposition home or self-care (01) ==
LOC: MADERS 03:32
DX: K04.7 Periapical abscess without sinus (principal); F41.9 Anxiety disorder, unspecified; F32.A Depression, unspecified; K85.90 Acute pancreatitis without necrosis or infection, unspecified; F17.210 Nicotine dependence, cigarettes, uncomplicated
CPT/HCPCS: 99283

== ENCOUNTER 2023-11-07 03:35 | Emergency (ER) | payer SELFPAY | END 2023-11-07 04:52 | disposition left against medical advice (07) | LOC: MADERS 03:35 | DX: Z53.21 Procedure and treatment not carried out due to patient leaving prior to being seen by health care provider (principal) ==